=== PATIENT | male | born 1985 ===

== ENCOUNTER → 2019-10-12 | Outpatient (CLI) | payer OTHER | LOC: HYPER 09:12 | PROVIDERS: ATTEND Emergency Medicine Emergency Medical Services | DX: T81.31XA Disruption of external operation (surgical) wound, not elsewhere classified, initial encounter (principal); L89.613 Pressure ulcer of right heel, stage 3; G89.29 Other chronic pain; F41.9 Anxiety disorder, unspecified; L84 Corns and callosities; Y83.8 Other surgical procedures as the cause of abnormal reaction of the patient, or of later complication, without mention of misadventure at the time of the procedure; Y92.238 Other place in hospital as the place of occurrence of the external cause ==